=== PATIENT | male | born 1985 | race Caucasian/White ===

== ENCOUNTER 2018-01-31 10:31 | Emergency (ER) | payer MEDICAID ==
[2018-01-31] MEDS ORDERED: NS 1,000 ML IV ONE ×2 (11:00→11:44)
[2018-01-31 11:05] LABS: PLATELET COUNT 289 10^3/uL (150-400)
--- NOTE | 2018-01-31 11:26 | EDPHY ---
H & P Stated Complaint: hyperglycemia Time Seen by Provider: 01/31/18 11:25 HPI/ROS: CHIEF COMPLAINT: Sent to ED for medical clearance HISTORY OF PRESENT ILLNESS: The patient is sent to the emergency department for medical clearance for long-term. The patient has a history of diabetes which she manages with Humalog and Lantus. He reports he has had fairly reasonably controlled blood sugars. He also has a history of narcotic dependence and last used narcotics last night. The patient does have a history of a seizure disorder and is currently using CBD oil. He is under the care of a neurologist in [place]. The patient denies any history of a recent fall or head injury. He did have a CT scan 4 weeks ago. The patient is on a number of other medications including Xanax, Prozac, Adderall and Abilify. The patient does complain of some mild nausea but denies fever, vomiting, cough or congestion. The patient denies any additional acute complaints. REVIEW OF SYSTEMS: A comprehensive 10 point review of systems is otherwise negative aside from elements mentioned in the history of present illness. Source: Patient Exam Limitations: No limitations - Personal History Current Tetanus/Diphtheria Vaccine: Unsure Current Tetanus Diphtheria and Acellular Pertussis (TDAP): Unsure - Medical/Surgical History Hx Asthma: Yes Hx Chronic Respiratory Disease: No Hx Diabetes: Yes Hx Cardiac Disease: No Hx Renal Disease: No Hx Cirrhosis: No Hx Alcoholism: Yes Hx HIV/AIDS: No Hx Splenectomy or Spleen Trauma: No Other PMH: diabetes, TBI, anxiety, drug abuse and seizures ( takes CBD oil for same) - Social History Smoking Status: Current every day smoker - Physical Exam Exam: General Appearance: Alert, no distress Head: Normocephalic atraumatic Eyes: Pupils equal and round no pallor or injection ENT, Mouth: Mucous membranes moist Respiratory: There are no retractions, lungs are clear to auscultation Cardiovascular: Regular rate and rhythm Gastrointestinal: Abdomen is soft and nontender, no masses, bowel sounds normal Neurological: A&O, normal motor function, normal sensory exam, normal cranial nerves Skin: Warm and dry, no rashes Musculoskeletal: Neck is supple nontender Extremities: symmetrical, full range of motion Constitutional: Initial Vital Signs Heart Rate 94 01/31/18 10:35 Respiratory Rate 16 01/31/18 10:35 Blood Pressure 112/85 H 01/31/18 10:35 O2 Sat (%) 93 01/31/18 10:35 O2 Delivery Mode Room Air Allergies/Adverse Reactions: naproxen Allergy (Verified 01/31/18 10:41) Home Medications: Medication Instructions Recorded Insulin Lispro [Humalog] 01/31/18 Lantus 01/31/18 Medical Decision Making ED Course/Re-evaluation: The patient presents the ED for medical clearance. The patient reports that he is in narcotic withdrawal however is having no tachycardia, tremor or vomiting. His vital signs are stable. His neurologic examination is normal. The patient does have a history of diabetes and was noted to have hyperglycemia upon arrival. He has no evidence of diabetic ketoacidosis. He received subcutaneous insulin 8 units and 2 L of normal saline. Patient's blood sugar is now 213 in his venous pH is 7.32. The patient has been medically cleared for long-term. He should continue his regular psychiatric medications and insulin therapy while in long-term. The patient should be monitored for signs of severe withdrawal and return to the ED for any vital sign abnormalities, intractable vomiting, abnormal mentation or other concerns. - Data Points Laboratory Results: Laboratory Results 01/31/18 10:25 01/31/18 10:25 01/31/18 01/31/18 01/31/18 11:08 10:40 10:25 WBC RBC Hgb POC Hgb 16.0 gm/dL gm/dL (13.7-17.5) Hct POC Hct 47 % % (40-51) MCV MCH MCHC RDW Plt Count MPV Neut % (Auto) Lymph % (Auto) [place] % (Auto) Eos % (Auto) Baso % (Auto) Nucleat RBC Rel Count Absolute Neuts (auto) Absolute Lymphs (auto) Absolute Monos (auto) Absolute Eos (auto) Absolute Basos (auto) Absolute Nucleated RBC Immature Gran % Immature Gran # VBG pH 7.28 L (7.31-7.42) POC Sodium 136 mEq/L mEq/L (135-145) Sodium 134 mEq/L L mEq/L (135-145) POC Potassium 4.4 mEq/L mEq/L (3.3-5.0) Potassium 4.9 mEq/L mEq/L (3.3-5.0) POC Chloride 98 mEq/L mEq/L (97-110) Chloride 99 mEq/L mEq/L (97-110) Carbon Dioxide 26 mEq/l mEq/l (22-31) Anion Gap 9 mEq/L mEq/L (8-16) POC BUN 13 mg/dL mg/dL (7-23) BUN 14 mg/dL mg/dL (7-23) Creatinine 0.6 mg/dL L mg/dL (0.7-1.3) POC Creatinine 0.5 mg/dL L mg/dL (0.7-1.3) Estimated GFR > 60 Glucose 397 mg/dL H mg/dL (70-100) POC Glucose 412 mg/dL H mg/dL (70-100) Calcium 10.2 mg/dL mg/dL (8.5-10.4) 01/31/18 10:25 WBC 6.16 10^3/uL 10^3/uL (3.80-9.50) RBC 5.05 10^6/uL 10^6/uL (4.40-6.38) Hgb 15.6 g/dL g/dL (13.7-17.5) POC Hgb Hct 43.8 % % (40.0-51.0) POC Hct MCV 86.7 fL fL (81.5-99.8) MCH 30.9 pg pg (27.9-34.1) MCHC 35.6 g/dL g/dL (32.4-36.7) RDW 12.3 % % (11.5-15.2) Plt Count 289 10^3/uL 10^3/uL (150-400) MPV 9.6 fL fL (8.7-11.7) Neut % (Auto) 58.4 % % (39.3-74.2) Lymph % (Auto) 29.5 % % (15.0-45.0) [place] % (Auto) 9.7 % % (4.5-13.0) Eos % (Auto) 1.0 % % (0.6-7.6) Baso % (Auto) 1.1 % % (0.3-1.7) Nucleat RBC Rel Count 0.0 % % (0.0-0.2) Absolute Neuts (auto) 3.59 10^3/uL 10^3/uL (1.70-6.50) Absolute Lymphs (auto) 1.82 10^3/uL 10^3/uL (1.00-3.00) Absolute Monos (auto) 0.60 10^3/uL 10^3/uL (0.30-0.80) Absolute Eos (auto) 0.06 10^3/uL 10^3/uL (0.03-0.40) Absolute Basos (auto) 0.07 10^3/uL 10^3/uL (0.02-0.10) Absolute Nucleated RBC 0.00 10^3/uL 10^3/uL (0-0.01) Immature Gran % 0.3 % % (0.0-1.1) Immature Gran # 0.02 10^3/uL 10^3/uL (0.00-0.10) VBG pH POC Sodium Sodium POC Potassium Potassium POC Chloride Chloride Carbon Dioxide Anion Gap POC BUN BUN Creatinine POC Creatinine Estimated GFR Glucose POC Glucose Calcium Medications Given: Discontinued Medications Sodium Chloride (Ns) 1,000 mls @ 0 mls/hr IV EDNOW ONE; Wide Open PRN Reason: Protocol Stop: 01/31/18 11:01 Last Admin: 01/31/18 11:07 Dose: 1,000 mls Sodium Chloride (Ns) 1,000 mls @ 0 mls/hr IV EDNOW ONE; Wide Open PRN Reason: Protocol Stop: 01/31/18 11:45 Last Admin: 01/31/18 11:53 Dose: 1,000 mls Insulin Human Regular (Humulin R) 8 unit SC EDNOW ONE Stop: 01/31/18 11:56 Last Admin: 01/31/18 12:03 Dose: 8 units Point of Care Test Results: Chemistry 01/31/18 10:40 POC Sodium 136 mEq/L mEq/L (135-145) POC Potassium 4.4 mEq/L mEq/L (3.3-5.0) POC Chloride 98 mEq/L mEq/L (97-110) POC BUN 13 mg/dL mg/dL (7-23) POC Creatinine 0.5 mg/dL L mg/dL (0.7-1.3) POC Glucose 412 mg/dL H mg/dL (70-100) ISTAT H&H 01/31/18 10:40 POC Hgb 16.0 gm/dL gm/dL (13.7-17.5) POC Hct 47 % % (40-51) Departure - Departure Disposition: Home, Routine, Self-Care Clinical Impression: Diabetes, Seizure disorder Condition: Good Instructions: Diabetes and Nutrition (ED) Additional Instructions: 1. Continue your regular insulin therapy. 2. I do recommend continuing to work with your neurologist regarding your chronic seizure disorder. 3. Return to the ED for any markedly worsening symptoms or other concerns. 4. You have been given contact information for [facility] if you desire assistance with narcotic dependence Referrals: [facility] [Outside] - As per Instructions
[2018-01-31] MEDS ORDERED: INSULIN REGULAR HUMAN 100 UNIT/ML UNIT SC ONE (11:55)
[2018-01-31 13:01] VITALS: BP 132/85
== END 2018-01-31 12:59 | disposition home or self-care (01) ==
LOC: EDUNIT#
DX: G40.909 Epilepsy, unspecified, not intractable, without status epilepticus (principal); E11.9 Type 2 diabetes mellitus without complications; E86.9 Volume depletion, unspecified; J45.909 Unspecified asthma, uncomplicated; F17.200 Nicotine dependence, unspecified, uncomplicated; Z79.4 Long term (current) use of insulin
CPT/HCPCS: 82435-PO; 82565-PO; 82947-PO; 84132-PO; 84295-PO; 84520-PO; 85014-PO; J1815

== ENCOUNTER 2018-02-05 14:40 | Emergency (ER) | payer MEDICAID, OTHER ==
--- NOTE | 2018-02-05 15:17 | EDPHY ---
H & P Time Seen by Provider: 02/05/18 14:57 HPI/ROS: CHIEF COMPLAINT: Head injury HISTORY OF PRESENT ILLNESS: Patient is a 32-year-old male, incarcerated, with a history of insulin-dependent diabetes who presents emergency department after striking his head. Per officer report, the patient is on suicide watch. He is checked every 15 min. Patient states that he fell down and struck his head on the counter. The initial report was that he hit his head on the bunk bed. The patient denies losing consciousness. Per the officer, he seems more somnolent than normal. The officer reports that his glucose was in the 300s. Patient denies any headache or neck pain. He has no chest pain or shortness of breath. REVIEW OF SYSTEMS: My complete review of systems is negative except as mentioned in the HPI. Past Medical/Surgical History: Includes insulin-dependent diabetes, traumatic brain injury, anxiety, drug abuse , seizure Social history: The patient is incarcerated Smoking Status: Current every day smoker Physical Exam: Vitals noted. GENERAL: No acute distress, alert. HEAD: Patient has a 1 cm laceration on the top of his head. There is no crepitus or step-off.. EYES: PERRLA, EOMI, normal to inspection. ENT: Airway intact, no dental or oral injury, no malocclusion, no hemotympanum , normal external examination. NECK: The trachea is midline. There is no crepitus. The C-spine is nontender. NEXUS criteria is negative (no midline tenderness, no distracting injury, no altered mental status, no recent alcohol use, no focal neurologic deficit). RESPIRATORY: Clear to auscultation bilaterally, no rales, rhonchi or wheezing. There is no crepitus or palpable rib fractures. CVS: Regular rate and rhythm, no rubs, murmurs, or gallops. ABDOMEN: Soft, nontender, nondistended, normal bowel sounds, no bruising or abrasions. Pelvis: Stable. No tenderness palpation. Hips full range of motion. BACK: Normal to inspection, no spinal tenderness, no spinal step off, no notable bruising or abrasions. SKIN: Normal color, warm, dry. No pallor or diaphoresis. EXTREMITIES: Atraumatic, neurovascularly intact distally in all extremities, pelvis is stable , hips with full range of motion, moves all extremities freely. NEURO/PSYCH: Alert and oriented x 3, GCS 15, patient asks some strange questions but otherwise answers my questions appropriately. Normal motor sensory exam. Constitutional: Initial Vital Signs Temperature (C) 36.4 C 02/05/18 14:45 Heart Rate 68 02/05/18 14:45 Respiratory Rate 14 02/05/18 14:45 Blood Pressure 133/90 H 02/05/18 14:45 O2 Sat (%) 98 02/05/18 14:45 O2 Delivery Mode Room Air Allergies/Adverse Reactions: naproxen Allergy (Verified 01/31/18 10:41) Home Medications: Medication Instructions Recorded Insulin Lispro [Humalog] 01/31/18 Lantus 01/31/18 Medical Decision Making - Diagnostics Imaging Results: Imaging Impressions Cervical Spine CT 02/05/18 15:13 Impression: 1. No acute fracture or soft tissue swelling. 2. If the patient has persistent pain or neurologic deficits, consider cervical spine MRI. Findings discussed with Emergency Department physician, Angelica Upton M.D. , on February 05, 2018 at 15:53. Head CT 02/05/18 15:13 Impression: 1. No acute fracture or evidence of acute intracranial injury. 2. Minimal scalp deformity at the vertex. Findings discussed with Emergency Department physician, Angelica Upton M.D. , on February 05, 2018 at 1553. Procedures: Procedure: Laceration repair. Verbal consent was obtained from the patient. The 0.5 cm laceration on the scalp was anesthetized in the usual fashion. The wound was irrigated, draped and explored to its base with a gloved finger. There were no deep structures involved. The wound was repaired with . The wound repair was a single staple. The procedure was performed by myself. ED Course/Re-evaluation: In the emergency department I discussed possible etiologies with the patient and officer. I answered all his questions. An IV was placed. Finger stick blood glucose was ordered. Head CT and C-spine CT were ordered. Glucose was [address], C-spine CT: Please refer the dictated report. There is a soft tissue injury on the had otherwise no abnormality noted. Patient's CBC was notable for slightly low hematocrit.. His chemistry panel is notable for an anion gap of 5. Mildly elevated glucose. CO2 was normal. I rechecked the patient. His C-collar was removed. On recheck he had no focal deficits. He has answer my questions appropriately. His GCS was 15. He was acting normally. Patient was given warnings prior to leaving. Differential Diagnosis: My differential includes but is not limited to traumatic brain injury, subarachnoid hemorrhage, subdural hematoma, epidural hematoma, skull fracture, laceration, contusion, C-spine injury, electrolyte abnormality, sugar abnormality, acidosis - Data Points Laboratory Results: Laboratory Results 02/05/18 15:33 02/05/18 15:33 02/05/18 02/05/18 02/05/18 15:33 15:33 15:12 WBC 7.41 10^3/uL 10^3/uL (3.80-9.50) RBC 4.51 10^6/uL 10^6/uL (4.40-6.38) Hgb 13.7 g/dL g/dL (13.7-17.5) Hct 38.5 % L % (40.0-51.0) MCV 85.4 fL fL (81.5-99.8) MCH 30.4 pg pg (27.9-34.1) MCHC 35.6 g/dL g/dL (32.4-36.7) RDW 12.2 % % (11.5-15.2) Plt Count 277 10^3/uL 10^3/uL (150-400) MPV 9.4 fL fL (8.7-11.7) Neut % (Auto) 70.5 % % (39.3-74.2) Lymph % (Auto) 21.9 % % (15.0-45.0) [place] % (Auto) 6.9 % % (4.5-13.0) Eos % (Auto) 0.3 % L % (0.6-7.6) Baso % (Auto) 0.3 % % (0.3-1.7) Nucleat RBC Rel Count 0.0 % % (0.0-0.2) Absolute Neuts (auto) 5.23 10^3/uL 10^3/uL (1.70-6.50) Absolute Lymphs (auto) 1.62 10^3/uL 10^3/uL (1.00-3.00) Absolute Monos (auto) 0.51 10^3/uL 10^3/uL (0.30-0.80) Absolute Eos (auto) 0.02 10^3/uL L 10^3/uL (0.03-0.40) Absolute Basos (auto) 0.02 10^3/uL 10^3/uL (0.02-0.10) Absolute Nucleated RBC 0.00 10^3/uL 10^3/uL (0-0.01) Immature Gran % 0.1 % % (0.0-1.1) Immature Gran # 0.01 10^3/uL 10^3/uL (0.00-0.10) Sodium 134 mEq/L L mEq/L (135-145) Potassium 4.1 mEq/L mEq/L (3.3-5.0) Chloride 102 mEq/L mEq/L (97-110) Carbon Dioxide 27 mEq/l mEq/l (22-31) Anion Gap 5 mEq/L L mEq/L (8-16) BUN 12 mg/dL mg/dL (7-23) Creatinine 0.6 mg/dL L mg/dL (0.7-1.3) Estimated GFR > 60 Glucose 321 mg/dL H mg/dL (70-100) POC Glucose 349 mg/dL H mg/dL (70-100) Calcium 9.0 mg/dL mg/dL (8.5-10.4) Ethyl Alcohol < 10 mg/dL mg/dL (0-10) Point of Care Test Results: Chemistry 02/05/18 15:12 POC Glucose 349 mg/dL H mg/dL (70-100) Departure - Departure Disposition: Home, Routine, Self-Care Clinical Impression: Head injury Qualifiers: Encounter type: initial encounter Qualified Code(s): S09.90XA - Unspecified injury of head, initial encounter Laceration of scalp Qualifiers: Encounter type: initial encounter Qualified Code(s): S01.01XA - Laceration without foreign body of scalp, initial encounter Condition: Good Instructions: Head Injury (ED), Laceration (ED) Additional Instructions: Return with increasing headache, weakness, numbness or any other concerns. You should IV staple out in 6-7 days.
[2018-02-05 15:43] LABS: PLATELET COUNT 277 10^3/uL (150-400)
[2018-02-05 16:41] VITALS: BP 115/74
== END 2018-02-05 16:47 | disposition home or self-care (01) ==
LOC: EDUNIT# → EEVIPCON 14:40
PROC: 0HQ0XZZ Repair Scalp Skin, External Approach (ICD-10-PCS; principal; 2018-02-05)
DX: S01.01XA Laceration without foreign body of scalp, initial encounter (principal); E10.9 Type 1 diabetes mellitus without complications; F17.200 Nicotine dependence, unspecified, uncomplicated; W22.8XXA Striking against or struck by other objects, initial encounter; Y92.9 Unspecified place or not applicable; Y93.9 Activity, unspecified; Y99.9 Unspecified external cause status
CPT/HCPCS: G0480

== ENCOUNTER 2018-03-24 11:16 | Inpatient (IN) | payer MEDICAID, OTHER ==
--- NOTE | 2018-03-24 11:23 | EDPHY ---
H & P Time Seen by Provider: 03/24/18 11:19 - Medical/Surgical History Hx Asthma: Yes Hx Chronic Respiratory Disease: No Hx Diabetes: Yes Hx Cardiac Disease: No Hx Renal Disease: No Hx Cirrhosis: No Hx Alcoholism: Yes Hx HIV/AIDS: No Hx Splenectomy or Spleen Trauma: No Other PMH: diabetes, TBI, anxiety, drug abuse and seizures ( takes CBD oil for same) - Social History Smoking Status: Current every day smoker Constitutional: Initial Vital Signs Temperature (C) 36.9 C 03/24/18 11:16 Heart Rate 118 H 03/24/18 11:16 Respiratory Rate 19 03/24/18 11:16 Blood Pressure 157/108 H 03/24/18 11:16 O2 Sat (%) 96 03/24/18 11:16 O2 Delivery Mode Room Air O2 (L/minute) 2 Allergies/Adverse Reactions: naproxen Allergy (Unknown, Verified 03/24/18 14:17) Hives Home Medications: Medication Instructions Recorded Insulin Glargine [Lantus 100 28 units SC HS 01/31/18 UNITS/ML (*)] Insulin Lispro [Humalog] 5 - 17 units SQ QIDMEAL 01/31/18 Escitalopram Oxalate [Lexapro] 10 mg PO DAILY 03/24/18 Insulin Glargine [Lantus 100 25 units SC DAILY 03/24/18 UNITS/ML (*)] traZODone [traZODONE 100MG (*)] 200 mg PO HS 03/24/18 Medical Decision Making - Diagnostics Imaging Results: Imaging Impressions Abdomen CT 03/24/18 11:31 Impression: 1. Tiny gallstones within otherwise normal contracted gallbladder. 2. Moderate constipation. 3. Mild haziness around the pancreatic head. Consider mild pancreatitis. 4. Mild thickening of proximal small bowel loops. Consider mild enteritis or inflammatory process. 5. No CT evidence of appendicitis, abscess or bowel obstruction. Findings discussed with Martínez Cabral MD at 13:32 hour, 03/24/2018. Imaging: Discussed imaging studies w/ air crew member Radiologist, I viewed and interpreted images myself ED Course/Re-evaluation: CHIEF COMPLAINT: Abdominal pain HISTORY OF PRESENT ILLNESS: The patient is a 32 y/o male with a history of gastroparesis, diabetes, a TBI, and anxiety arriving in [facility] complaining of abdominal pain and distension. The patient has had gastroparesis twice, with his most recent episode 2-3 months ago. With his most recent gastroparesis, he was admitted to the hospital for 4 days. Around 4-5 days ago, the patient developed abdominal pain and distension; he denies vomiting. He has been able to drink water but has had a decreased appetite. He has also had normal bowel movement and is able to pass gas. When he went to the alf nurse this morning his BGL was over 600, so he was given 12 units of Humalog. He was also given Tylenol for his abdominal pain this morning. Currently he "feels like his abdomen is ripping on the inside". No headache, chest pain, shortness of breath, urinary or bowel complaints, numbness, paresthesias, fever. REVIEW OF SYSTEMS: A comprehensive 10 system review of systems is otherwise negative aside from elements mentioned in the history of present illness and medical decision making. PHYSICAL EXAM: HR, BP, O2 Sat, RR. Temp noted General Appearance: Alert, well hydrated, appropriate, and non-toxic appearing. Head: Atraumatic without scalp tenderness or obvious injury Eyes: Pupils equal, round, reactive to light and accommodation, EOMI, no trauma , no injection. Ears: Clear bilaterally, no perforation, normal landmarks Nose: Atraumatic, no rhinorrhea, clear. Throat: There is no erythema or exudates, no lesions, normal tonsils, mucus membranes moist. Neck: Supple, nontender, no lymphadenopathy. Respiratory: No retractions, no distress, no wheezes, and no accessory muscle use. Lungs are clear to auscultation bilaterally. Cardiovascular: Regular rate and rhythm, no murmurs, rubs, or gallops. Bilateral carotid, radial, dorsalis pedis, and posterior tibial pulses intact. Good capillary refill all extremities. Gastrointestinal: Distended abdomen with tympanum and diffuse tenderness. Abdomen has no masses, no rebound, no guarding, no peritoneal signs. Musculoskeletal: Normal active ROM of all extremities, atraumatic. Neurological: Alert, appropriate, and interactive. The patient has normal DTRs and non-focal cranial nerves, motor, sensory, and cerebellar exam. Skin: No rashes, good turgor, no nodules on palpation. Past medical history: Gastroparesis, diabetes, TBI, anxiety, drug abuse and seizures ( takes CBD oil for same) Past surgical history: Denies Family history: Denies Social history: Inmate, lives in [place], single DIAGNOSTICS/PROCEDURES/CRITICAL CARE TIME: Abdominopelvic CT: Moderate constipation with mild enteritis DIFFERENTIAL DIAGNOSIS: The differential diagnosis for the patient's abdominal pain included but was not limited to constipation, enteritis, appendicitis, cholecystitis, hernias, testicular torsion, gastritis, and urinary tract infection. MEDICAL DECISION MAKING: The patient is a 32 y/o male with a history of gastroparesis, diabetes, a TBI, and anxiety arriving in [facility] presenting with abdominal pain and distension. On exam he has a significantly distended abdomen with tympanum and diffuse tenderness. Labs and abdominopelvic CT ordered; 1L IV NS, 1mg IV Dilaudid, and 4mg IV Zofran administered. 1215: Patient's BGL continues to be 580; repeat BGL ordered as he was given 12 units of Humalog at the alf, prior to arrival. 1228: Patient's repeat BGL is 378; abdominopelvic CT still pending. 1308: Patient is requesting more pain medications; additional 1mg IV Dilaudid and 10mg IV Reglan administered. 1334: Spoke with Dr. Cummings, radiologist, regarding patient's abdominopelvic CT. There is moderate constipation with mild enteritis. This patient will need to be admitted as he will most likely be sent back to the hospital if I discharge him back to alf. 1346: I consulted with hospitalist service, Dr. Urbano accepts admission of this patient. 1352: Reassessed patient and discussed laboratory and imaging findings. I have also discussed plan for admission; patient is comfortable with this plan. 500mg PO Erythromycin administered prior to transfer to the floor. - Data Points Laboratory Results: Laboratory Results 03/24/18 11:30 03/24/18 11:30 03/24/18 03/24/18 03/24/18 12:23 11:31 11:30 WBC RBC Hgb POC Hgb 14.6 gm/dL gm/dL 15.6 gm/dL gm/dL (13.7-17.5) (13.7-17.5) Hct POC Hct 43 % % 46 % % (40-51) (40-51) MCV MCH MCHC RDW Plt Count MPV Neut % (Auto) Lymph % (Auto) [place] % (Auto) Eos % (Auto) Baso % (Auto) Nucleat RBC Rel Count Absolute Neuts (auto) Absolute Lymphs (auto) Absolute Monos (auto) Absolute Eos (auto) Absolute Basos (auto) Absolute Nucleated RBC Immature Gran % Immature Gran # POC Sodium 136 mEq/L mEq/L 133 mEq/L L mEq/L (135-145) (135-145) Sodium 132 mEq/L L mEq/L (135-145) POC Potassium 4.7 mEq/L mEq/L 4.5 mEq/L mEq/L (3.3-5.0) (3.3-5.0) Potassium 4.9 mEq/L mEq/L (3.3-5.0) POC Chloride 99 mEq/L mEq/L 98 mEq/L mEq/L (97-110) (97-110) Chloride 97 mEq/L mEq/L (97-110) Carbon Dioxide 23 mEq/l mEq/l (22-31) Anion Gap 12 mEq/L mEq/L (8-16) POC BUN 14 mg/dL mg/dL 13 mg/dL mg/dL (7-23) (7-23) BUN 13 mg/dL mg/dL (7-23) Creatinine 0.6 mg/dL L mg/dL (0.7-1.3) POC Creatinine 0.6 mg/dL L mg/dL 0.6 mg/dL L mg/dL (0.7-1.3) (0.7-1.3) Estimated GFR > 60 Glucose 565 mg/dL H* mg/dL (70-100) POC Glucose 378 mg/dL H mg/dL 584 mg/dL H* mg/dL (70-100) (70-100) Calcium 9.7 mg/dL mg/dL (8.5-10.4) Total Bilirubin 0.3 mg/dL mg/dL (0.1-1.4) Conjugated Bilirubin 0.1 mg/dL mg/dL (0.0-0.5) Unconjugated Bilirubin 0.2 mg/dL mg/dL (0.0-1.1) AST 20 IU/L IU/L (17-59) ALT 34 IU/L IU/L (21-72) Alkaline Phosphatase 82 IU/L IU/L (38-126) Total Protein 6.3 g/dL g/dL (6.3-8.2) Albumin 3.8 g/dL g/dL (3.5-5.0) Lipase 308 IU/L H IU/L (23-300) 03/24/18 11:30 WBC 8.82 10^3/uL 10^3/uL (3.80-9.50) RBC 4.66 10^6/uL 10^6/uL (4.40-6.38) Hgb 14.3 g/dL g/dL (13.7-17.5) POC Hgb Hct 41.7 % % (40.0-51.0) POC Hct MCV 89.5 fL fL (81.5-99.8) MCH 30.7 pg pg (27.9-34.1) MCHC 34.3 g/dL g/dL (32.4-36.7) RDW 12.7 % % (11.5-15.2) Plt Count 322 10^3/uL 10^3/uL (150-400) MPV 9.1 fL fL (8.7-11.7) Neut % (Auto) 75.8 % H % (39.3-74.2) Lymph % (Auto) 12.9 % L % (15.0-45.0) [place] % (Auto) 10.3 % % (4.5-13.0) Eos % (Auto) 0.2 % L % (0.6-7.6) Baso % (Auto) 0.6 % % (0.3-1.7) Nucleat RBC Rel Count 0.0 % % (0.0-0.2) Absolute Neuts (auto) 6.68 10^3/uL H 10^3/uL (1.70-6.50) Absolute Lymphs (auto) 1.14 10^3/uL 10^3/uL (1.00-3.00) Absolute Monos (auto) 0.91 10^3/uL H 10^3/uL (0.30-0.80) Absolute Eos (auto) 0.02 10^3/uL L 10^3/uL (0.03-0.40) Absolute Basos (auto) 0.05 10^3/uL 10^3/uL (0.02-0.10) Absolute Nucleated RBC 0.00 10^3/uL 10^3/uL (0-0.01) Immature Gran % 0.2 % % (0.0-1.1) Immature Gran # 0.02 10^3/uL 10^3/uL (0.00-0.10) POC Sodium Sodium POC Potassium Potassium POC Chloride Chloride Carbon Dioxide Anion Gap POC BUN BUN Creatinine POC Creatinine Estimated GFR Glucose POC Glucose Calcium Total Bilirubin Conjugated Bilirubin Unconjugated Bilirubin AST ALT Alkaline Phosphatase Total Protein Albumin Lipase Medications Given: Discontinued Medications Erythromycin (Parth-Tab) 500 mg PO EDNOW ONE PRN Reason: Protocol Stop: 03/24/18 13:08 Last Admin: 03/24/18 13:59 Dose: 500 mg Hydromorphone HCl (Dilaudid) 1 mg IVP EDNOW ONE Stop: 03/24/18 11:30 Last Admin: 03/24/18 11:41 Dose: 1 mg Hydromorphone HCl (Dilaudid) 1 mg IVP EDNOW ONE Stop: 03/24/18 13:08 Last Admin: 03/24/18 13:12 Dose: 1 mg Sodium Chloride (Ns) 1,000 mls @ 0 mls/hr IV EDNOW ONE; Wide Open PRN Reason: Protocol Stop: 03/24/18 11:30 Last Admin: 03/24/18 11:40 Dose: 1,000 mls Metoclopramide HCl (Reglan Injection) 10 mg IVP EDNOW ONE Stop: 03/24/18 13:08 Last Admin: 03/24/18 13:12 Dose: 10 mg Ondansetron HCl (Zofran) 4 mg IVP EDNOW ONE Stop: 03/24/18 11:30 Last Admin: 03/24/18 11:41 Dose: 4 mg Point of Care Test Results: Chemistry 03/24/18 03/24/18 12:23 11:31 POC Sodium 136 mEq/L mEq/L 133 mEq/L L mEq/L (135-145) (135-145) POC Potassium 4.7 mEq/L mEq/L 4.5 mEq/L mEq/L (3.3-5.0) (3.3-5.0) POC Chloride 99 mEq/L mEq/L 98 mEq/L mEq/L (97-110) (97-110) POC BUN 14 mg/dL mg/dL 13 mg/dL mg/dL (7-23) (7-23) POC Creatinine 0.6 mg/dL L mg/dL 0.6 mg/dL L mg/dL (0.7-1.3) (0.7-1.3) POC Glucose 378 mg/dL H mg/dL 584 mg/dL H* mg/dL (70-100) (70-100) ISTAT H&H 03/24/18 03/24/18 12:23 11:31 POC Hgb 14.6 gm/dL gm/dL 15.6 gm/dL gm/dL (13.7-17.5) (13.7-17.5) POC Hct 43 % % 46 % % (40-51) (40-51) Departure - Departure Disposition: [facility] Inpatient Acute Clinical Impression: Enteritis, Distended abdomen, Gastroparesis Constipation Qualifiers: Constipation type: unspecified constipation type Qualified Code(s): K59.00 - Constipation, unspecified Condition: Fair Report Scribed for: Martínez Cabral Report Scribed by: Sarah Nolan Date of Report: 03/24/18 Time of Report: 11:24
[2018-03-24] MEDS ORDERED: HYDROmorphONE/DILAUDID 2 MG/ML INJ IVP ONE ×2 (11:29→13:07)
[2018-03-24] MEDS ORDERED: NS 1,000 ML IV ONE ×2 (11:29→15:16)
[2018-03-24] MEDS ORDERED: ONDANSETRON 4 MG/2 ML VIAL IVP ONE (11:29)
[2018-03-24 11:46] LABS: PLATELET COUNT 322 10^3/uL (150-400)
[2018-03-24] MEDS ORDERED: IOPAMIDOL (ISOVUE-300) 100 ML BTL ONE (12:21)
[2018-03-24] MEDS ORDERED: METOCLOPRAMIDE 10 MG/2 ML VIAL IVP ONE (13:07)
[2018-03-24] MEDS ORDERED: ERYTHROMYCIN BASE 250 MG TAB PO ONE (13:07)
[2018-03-24] MEDS ORDERED: ONDANSETRON DISINTEGRATING 4 MG TAB PO PRN (15:16)
[2018-03-24] MEDS ORDERED: ONDANSETRON 4 MG/2 ML VIAL IVP PRN (15:16)
[2018-03-24] MEDS ORDERED: PROTOCOL POTASSIUM 1 DOSE MISC PRN (15:19)
[2018-03-24] MEDS ORDERED: PROTOCOL MAGNESIUM 1 DOSE IV PRN (15:19)
[2018-03-24] MEDS ORDERED: D50W 25 GM/50 ML SYR IVP PRN (15:20)
[2018-03-24] MEDS ORDERED: INSULIN LISPRO 100 UNIT/ML SC ONE (15:23)
--- NOTE | 2018-03-24 15:26 | PDGENHP ---
History and Physical - Chief Complaint nausea - History of Present Illness HISTORY OF PRESENT ILLNESS: The patient is a 32 y/o male with a history of gastroparesis, diabetes, a TBI, and anxiety arriving in [facility] complaining of abdominal pain and distension. The patient has had gastroparesis twice, with his most recent episode 2-3 months ago. With his most recent gastroparesis, he was admitted to the hospital for 4 days. Around 4-5 days ago, the patient developed abdominal pain and distension; he denies vomiting. He has been able to drink water but has had a decreased appetite. He has also had normal bowel movement and is able to pass gas. When he went to the [facility] nurse this morning his BGL was over 600, so he was given 12 units of Humalog. He was also given Tylenol for his abdominal pain this morning. Currently he "feels like his abdomen is ripping on the inside". No headache, chest pain, shortness of breath, urinary or bowel complaints, numbness, paresthesias, fever. In the ER he is found to have hyperglycemia. IVF provided. no e/o DKA Past medical history: Gastroparesis, diabetes, TBI, anxiety, drug abuse and seizures ( takes CBD oil for same) Past surgical history: Denies Family history: Denies Social history: Inmate, lives in [place], [facility] Abdominopelvic CT: Moderate constipation with mild enteritis History Information - Allergies/Home Medication List Allergies/Adverse Reactions: naproxen Allergy (Unknown, Verified 03/24/18 14:17) Hives Home Medications: Insulin Glargine [Lantus 100 UNITS/ML (*)] 28 units SC HS 01/31/18 [Last Taken Unknown] Insulin Lispro [Humalog] 5 - 17 units SQ QIDMEAL 01/31/18 [Last Taken Unknown] Escitalopram Oxalate [Lexapro] 10 mg PO DAILY 03/24/18 [Last Taken Unknown] Insulin Glargine [Lantus 100 UNITS/ML (*)] 25 units SC DAILY 03/24/18 [Last Taken Unknown] traZODone [traZODONE 100MG (*)] 200 mg PO HS 03/24/18 [Last Taken Unknown] I have personally reviewed and updated: medical history, social history - Social History Smoking Status: Current every day smoker Review of Systems Review of Systems: ROS: 10pt was reviewed & negative except for what was stated in HPI & below Physical Exam Physical Exam: Temp Pulse Resp BP Pulse Ox 36.9 C 95 16 135/93 H 98 03/24/18 11:16 03/24/18 15:00 03/24/18 15:00 03/24/18 15:00 03/24/18 15:00 O2 (L/minute) 2 Constitutional: no apparent distress Eyes: PERRL Ears, Nose, Mouth, Throat: dry mucous membranes Cardiovascular: regular rate and rhythym, No edema Respiratory: no respiratory distress, no rales or rhonchi Gastrointestinal: normoactive bowel sounds, soft, non-tender abdomen Skin: warm Musculoskeletal: full muscle strength Neurologic: AAOx3 Psychiatric: interacting appropriately, not anxious, not encephalopathic Lymph, Heme, Immunologic: No petechiae Lab Data & Imaging Review 03/24/18 11:30 03/24/18 11:30 WBC 8.82 10^3/uL (3.80-9.50) 03/24/18 11:30 RBC 4.66 10^6/uL (4.40-6.38) 03/24/18 11:30 Hgb 14.3 g/dL (13.7-17.5) 03/24/18 11:30 POC Hgb 14.6 gm/dL (13.7-17.5) 03/24/18 12:23 Hct 41.7 % (40.0-51.0) 03/24/18 11:30 POC Hct 43 % (40-51) 03/24/18 12:23 MCV 89.5 fL (81.5-99.8) 03/24/18 11:30 MCH 30.7 pg (27.9-34.1) 03/24/18 11:30 MCHC 34.3 g/dL (32.4-36.7) 03/24/18 11:30 RDW 12.7 % (11.5-15.2) 03/24/18 11:30 Plt Count 322 10^3/uL (150-400) 03/24/18 11:30 MPV 9.1 fL (8.7-11.7) 03/24/18 11:30 Neut % (Auto) 75.8 % (39.3-74.2) H 03/24/18 11:30 Lymph % (Auto) 12.9 % (15.0-45.0) L 03/24/18 11:30 [place] % (Auto) 10.3 % (4.5-13.0) 03/24/18 11:30 Eos % (Auto) 0.2 % (0.6-7.6) L 03/24/18 11:30 Baso % (Auto) 0.6 % (0.3-1.7) 03/24/18 11:30 Nucleat RBC Rel Count 0.0 % (0.0-0.2) 03/24/18 11:30 Absolute Neuts (auto) 6.68 10^3/uL (1.70-6.50) H 03/24/18 11:30 Absolute Lymphs (auto) 1.14 10^3/uL (1.00-3.00) 03/24/18 11:30 Absolute Monos (auto) 0.91 10^3/uL (0.30-0.80) H 03/24/18 11:30 Absolute Eos (auto) 0.02 10^3/uL (0.03-0.40) L 03/24/18 11:30 Absolute Basos (auto) 0.05 10^3/uL (0.02-0.10) 03/24/18 11:30 Absolute Nucleated RBC 0.00 10^3/uL (0-0.01) 03/24/18 11:30 Immature Gran % 0.2 % (0.0-1.1) 03/24/18 11:30 Immature Gran # 0.02 10^3/uL (0.00-0.10) 03/24/18 11:30 POC Sodium 136 mEq/L (135-145) 03/24/18 12:23 Sodium 132 mEq/L (135-145) L 03/24/18 11:30 POC Potassium 4.7 mEq/L (3.3-5.0) 03/24/18 12:23 Potassium 4.9 mEq/L (3.3-5.0) 03/24/18 11:30 POC Chloride 99 mEq/L (97-110) 03/24/18 12:23 Chloride 97 mEq/L (97-110) 03/24/18 11:30 Carbon Dioxide 23 mEq/l (22-31) 03/24/18 11:30 Anion Gap 12 mEq/L (8-16) 03/24/18 11:30 POC BUN 14 mg/dL (7-23) 03/24/18 12:23 BUN 13 mg/dL (7-23) 03/24/18 11:30 Creatinine 0.6 mg/dL (0.7-1.3) L 03/24/18 11:30 POC Creatinine 0.6 mg/dL (0.7-1.3) L 03/24/18 12:23 Estimated GFR > 60 03/24/18 11:30 Glucose 565 mg/dL (70-100) H* 03/24/18 11:30 POC Glucose 378 mg/dL (70-100) H 03/24/18 12:23 Calcium 9.7 mg/dL (8.5-10.4) 03/24/18 11:30 Total Bilirubin 0.3 mg/dL (0.1-1.4) 03/24/18 11:30 Conjugated Bilirubin 0.1 mg/dL (0.0-0.5) 03/24/18 11:30 Unconjugated Bilirubin 0.2 mg/dL (0.0-1.1) 03/24/18 11:30 AST 20 IU/L (17-59) 03/24/18 11:30 ALT 34 IU/L (21-72) 03/24/18 11:30 Alkaline Phosphatase 82 IU/L (38-126) 03/24/18 11:30 Total Protein 6.3 g/dL (6.3-8.2) 03/24/18 11:30 Albumin 3.8 g/dL (3.5-5.0) 03/24/18 11:30 Lipase 308 IU/L (23-300) H 03/24/18 11:30 Assessment & Plan Assessment: #Dehydration #DM-I with Hyperglycemia #Nausea #Gastroparesis with distended abd -CT with possible enteritis. no signs of obstruction Plan: admit observation IVF, will give more now insulin, will give additional now anti emetics Clear liquid diet [facility]
[2018-03-24] MEDS: PANTOPRAZOLE SODIUM 40 MG VIAL IVP SCH (16:41)
[2018-03-24] MEDS: INSULIN LISPRO 100 UNIT/ML SC SCH (17:48)
[2018-03-24] MEDS ORDERED: POTASSIUM CL 10 MEQ TAB PO ONE (19:38)
[2018-03-24] MEDS ORDERED: INSULIN GLARGINE 100 UNITS/ML UNIT SC ONE (21:00)
[2018-03-24] MEDS: NS 1,000 ML IV SCH (21:33)
[2018-03-24] MEDS: ACETAMINOPHEN 325 MG TAB PO PRN (21:33)
[2018-03-24] MEDS: METOCLOPRAMIDE 10 MG/2 ML VIAL IVP SCH (21:33)
[2018-03-24] MEDS: traZODone 100 MG TAB PO SCH (21:33)
[2018-03-24] MEDS: INSULIN GLARGINE 100 UNITS/ML UNIT SC SCH (21:36)
[2018-03-25 05:19] LABS: PLATELET COUNT 280 10^3/uL (150-400)
[2018-03-25] MEDS: METOCLOPRAMIDE 10 MG/2 ML VIAL IVP SCH ×3 (05:29→21:21)
[2018-03-25] MEDS: NS 1,000 ML IV SCH (05:29)
[2018-03-25] MEDS: INSULIN LISPRO 100 UNIT/ML SC SCH ×4 (07:42→17:50)
--- NOTE | 2018-03-25 09:02 | ASMTCMCOM ---
CM Note CM Note Notes: 32yr old male admitted for Constipation, Abdominal distention, Gastro Paresis. He has a Hx of DM, CHI, Sz diso, Anxiety, Drug abuse, Smoker. Patient is from the long term, at [facility] under OBS status. May return to long term? Needs TBD. Date Signed: 03/25/2018 09:02 AM Electronically Signed By:Estefania Velasquez LCSW
[2018-03-25] MEDS: ESCITALOPRAM OXALATE 10 MG TAB PO SCH (09:41)
[2018-03-25] MEDS: PANTOPRAZOLE SODIUM 40 MG VIAL IVP SCH (09:41)
[2018-03-25] MEDS: ACETAMINOPHEN 325 MG TAB PO PRN ×2 (09:41→14:15)
[2018-03-25] MEDS: INSULIN GLARGINE 100 UNITS/ML UNIT SC SCH ×3 (09:41→22:58)
[2018-03-25] MEDS ORDERED: MAGNESIUM SULF 1 GM/DEXTROSE 100 ML IV ONE (12:13)
--- NOTE | 2018-03-25 12:15 | HOSPPROG ---
Hospitalist Progress Note Assessment/Plan: #Dehydration #Brittle DM-I #Nausea #Gastroparesis with distended abd -CT with possible enteritis. no signs of obstruction Plan: his abdomen is still distend, although he has had a BM. Will go back to a clear liquid diet today and hopefully this will help. cont with Reglan which can be changed to PO on discharge. Hydration status is much improved and IVF will be stopped today. Trial off IVF He had one episode of hypoglycemia around midnight. As he was given lots of short acting insulin yesterday and this likely contributed to his one hypoglycemic reading, I will hold off on adjusting his intermediate insulin. Cont as is. Subjective: had one BM. Abd is distended. Objective: Vital Signs Temp Pulse Resp BP Pulse Ox 36.6 C 117 H 16 133/103 H 95 03/25/18 08:00 03/25/18 08:00 03/25/18 08:00 03/25/18 08:00 03/25/18 08:00 Laboratory Results 03/25/18 04:51 03/25/18 04:51 03/24/18 03/25/18 03/26/18 05:59 05:59 05:59 Intake Total 4120 750 Output Total 3675 700 Balance 445 50 - Physical Exam Constitutional: no apparent distress Eyes: PERRL Ears, Nose, Mouth, Throat: moist mucous membranes, hearing normal Cardiovascular: regular rate and rhythym Respiratory: no respiratory distress, no rales or rhonchi Gastrointestinal: normoactive bowel sounds, distension, No tenderness, No guarding Skin: warm Neurologic: AAOx3 Psychiatric: interacting appropriately, not anxious, not encephalopathic ICD10 Worksheet Patient Problems: Problems Problem Status Onset Constipation Acute Distended abdomen Acute Enteritis Acute Gastroparesis Acute
--- NOTE | 2018-03-25 14:14 | PDMN ---
Medical Necessity Medical necessity: Change to inpt as of 03/25/18 @ 12:16. Pt meets inpt criteria per MD order and Gastroenterology GRG. 32 y/o presenting w/abdominal pain and distention admitted w/ gastroparesis, hyperglycemia, dehydration, and nausea. IVF, IV Reglan, IVProtonix, cl liq diet. Hx diabetes, gastroparesis, anxiety, drug abuse, seizures, and TBI. Anticipate>2MN for ongoing med nec monitoring/ treatment.
[2018-03-25] MEDS: traZODone 100 MG TAB PO SCH (21:21)
[2018-03-25] MEDS ORDERED: POTASSIUM CL 10 MEQ TAB PO ONE (22:24)
[2018-03-26] MEDS: METOCLOPRAMIDE 10 MG/2 ML VIAL IVP SCH (05:20)
[2018-03-26] MEDS ORDERED: PNEUMOCOCCAL 0.5ML VACCINE VIAL IM ONE (05:28)
[2018-03-26] MEDS: INSULIN LISPRO 100 UNIT/ML SC SCH ×4 (09:04→18:10)
[2018-03-26] MEDS: ACETAMINOPHEN 325 MG TAB PO PRN ×2 (09:18→18:10)
[2018-03-26] MEDS: PANTOPRAZOLE SODIUM 40 MG VIAL IVP SCH (09:19)
[2018-03-26] MEDS: ESCITALOPRAM OXALATE 10 MG TAB PO SCH (09:19)
[2018-03-26] MEDS: INSULIN GLARGINE 100 UNITS/ML UNIT SC SCH ×2 (09:19→20:11)
--- NOTE | 2018-03-26 11:59 | HOSPPROG ---
Hospitalist Progress Note Assessment/Plan: #Dehydration #Brittle DM-I #Nausea #Gastroparesis with distended abd -CT with possible enteritis. no signs of obstruction Plan: his abdomen is still distend, but non-tender on exam. Will advance to diabetic diet toay. cont with Reglan which I will switch to PO today. Hydration status is much improved and IVF were stopped yesterday. He had one episode of hypoglycemia around midnight. 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 Cont as is. Dispo: Pending clinical course, possible d/c tomorrow Subjective: Patient reports continued abdominal distention Objective: Vital Signs Temp Pulse Resp BP Pulse Ox 37.1 C 117 H 18 147/105 H 95 03/26/18 09:00 03/26/18 09:00 03/26/18 09:00 03/26/18 09:00 03/26/18 09:00 Laboratory Results 03/26/18 04:32 03/25/18 03/26/18 03/27/18 05:59 05:59 05:59 Intake Total 250 Output Total 3300 Balance -3050 - Physical Exam Constitutional: no apparent distress Eyes: PERRL Ears, Nose, Mouth, Throat: moist mucous membranes Cardiovascular: regular rate and rhythym, no murmur, rub, or gallop Respiratory: no respiratory distress Gastrointestinal: soft, non-tender abdomen, distension Genitourinary: no bladder tenderness Skin: warm Musculoskeletal: full muscle strength Neurologic: AAOx3 Psychiatric: interacting appropriately ICD10 Worksheet Patient Problems: Problems Problem Status Onset Constipation Acute Distended abdomen Acute Enteritis Acute Gastroparesis Acute
[2018-03-26] MEDS: METOCLOPRAMIDE 10 MG TAB PO SCH ×3 (12:23→20:06)
[2018-03-26] MEDS: traZODone 100 MG TAB PO SCH (20:06)
[2018-03-27] MEDS: METOCLOPRAMIDE 10 MG TAB PO SCH ×2 (05:34→11:11)
[2018-03-27] MEDS ORDERED: MAGNESIUM SULF 1 GM/DEXTROSE 100 ML IV ONE (07:27)
[2018-03-27 07:38] VITALS: BP 144/90
[2018-03-27] MEDS: ESCITALOPRAM OXALATE 10 MG TAB PO SCH (07:49)
[2018-03-27] MEDS: INSULIN GLARGINE 100 UNITS/ML UNIT SC SCH (07:49)
[2018-03-27] MEDS: PANTOPRAZOLE SODIUM 40 MG VIAL IVP SCH (07:50)
[2018-03-27] MEDS: INSULIN LISPRO 100 UNIT/ML SC SCH (11:10)
--- NOTE | 2018-03-27 11:17 | PDDCSUM ---
Discharge Summary Discharge Summary: Date of Admission: 03/25/2018 Date of Discharge: 03/27/2018 Consults: N/A Followup: With PCP within next 1-2 weeks, consider Gastric Emptying study as OP Procedures: CT Abd/Pelvis w IVC Hospital Course Problem List: #CT with possible mild enteritis/Mild Pancreatitis - CT A/P from admission showed mild haziness around pancreatic head and mild thickening of proximal small bowel loops, no signs of obstruction - Abdomen is still mildly distend, but non-tender on exam. - Advanced to diabetic diet, tolerating well - cont with Reglan which was switched from IV to PO, will likely require formal testing for gastroparesis and decision to continue Reglan buttermaker continuous churn to be made by PCP - continue PPI as OP, may only require trial of 8 weeks, defer to PCP for prison continuation #Dehydration - S/p IVF, d.c on 03/26 - Patient tolerating diet well #Brittle DM-I - He had one episode of hypoglycemia during admission, as given lots of short acting insulin - Continue home Lantus and sliding scale Time Spent on discharge was >35 minutes with >50% of time spent on patient education and counseling
--- NOTE | 2018-03-27 11:32 | PDIAF ---
- Diagnosis Diagnosis: Enteritis Code Status: Full Code - Medication Management Discharge Medications: Medications to Continue on Transfer Insulin Glargine [Lantus 100 UNITS/ML (*)] 28 units SC HS 01/31/18 [Last Taken Unknown] Insulin Lispro [Humalog] 5 - 17 units SQ QIDMEAL 01/31/18 [Last Taken Unknown] Escitalopram Oxalate [Lexapro 10 MG] 10 mg PO DAILY 03/24/18 [Last Taken Unknown ] Insulin Glargine [Lantus 100 UNITS/ML (*)] 25 units SC DAILY 03/24/18 [Last Taken Unknown] traZODone [traZODONE 100MG (*)] 200 mg PO HS 03/24/18 [Last Taken Unknown] Metoclopramide [Reglan 10 mg tab (*)] 10 mg PO QID #0 tab 03/27/18 [Last Taken Unknown] Pantoprazole Sodium [Protonix 40mg (*)] 40 mg PO DAILY tab 03/27/18 [Last Taken Unknown] Discharge Medications: Refer to the Discharge Home Medication list for PRN reason. - Orders Diet Recommendation: ADA 2000 consistent carb Additional Instructions: 1. Take Miralax as directed. 2. Follow-up with your primary doctor within 72 hours. 3. Return to the Emergency Department for fever, chest pain, shortness of breath , increasing pain or other worsening of condition. - Follow Up Care Current Providers and Referrals: Selwyn Garcia [Primary Care Provider] - As per Instructions
--- NOTE | 2018-03-27 12:04 | ASMTDCNOTE ---
Case Management Discharge Discharge Order Complete? Answers: Yes Patient to Obtain Answers: Other Notes: [facility] Medications Transportation Arranged Answers: Other Notes: [facility] [employer]AL[employer] Complete Answers: No Case Management Transport Answers: No Form Complete Faxed Final Orders Answers: Yes Agency/Facility Transfer Answers: Yes Report Printed & Faxed to Receiving Agency Family Notified Answers: No Discharge Comments Notes: CM spoke to Dr. Bermudez and DEBORAH Mckeon regarding d/c POC. Pt is being discharged today back to [facility]. CM spoke to Iveth, a nurse at [facility]. DC orders sent over to them. CM made a referral to [facility]. Pt is currently being supported by Carmina at [facility]. CM available for changes. Plan: [facility] Date Signed: 03/27/2018 12:03 PM Electronically Signed By:LEA Wright
[2018-03-28] MEDS ORDERED: PANTOPRAZOLE SODIUM 40 MG TAB PO SCH (09:00)
== END 2018-03-27 12:30 | DRG 249 ==
LOC: F3E 16:04 → OBSVTOIN 03-25 12:16
PROVIDERS: ADMIT Family Medicine; ATTEND Family Medicine
DX: K52.9 Noninfective gastroenteritis and colitis, unspecified (principal); K85.90 Acute pancreatitis without necrosis or infection, unspecified; E10.649 Type 1 diabetes mellitus with hypoglycemia without coma; E86.0 Dehydration; Z23 Encounter for immunization; Z72.0 Tobacco use; Z79.4 Long term (current) use of insulin
CPT/HCPCS: 82435-PO; 82565-PO; 82947-PO; 84132-PO; 84295-PO; 84520-PO; 85014-PO; 96374; G0008; G0009; G0378; J1170; J1815; J2405; J2765; J3475; Q9967

== ENCOUNTER 2018-03-29 13:14 | Inpatient (IN) | payer MEDICAID, OTHER ==
[2018-03-29] MEDS ORDERED: ONDANSETRON 4 MG/2 ML VIAL IVP ONE (13:30)
[2018-03-29] MEDS ORDERED: NS 1,000 ML IV ONE (13:30)
--- NOTE | 2018-03-29 13:44 | EDPHY ---
H & P Time Seen by Provider: 03/29/18 13:25 HPI/ROS: HPI Bloating, abdominal discomfort. 32-year-old male from the [facility]. This patient was just admitted to our hospital from March 25 through March 27 for gastroparesis. He was discharged on oral Reglan. CT scan of the abdomen and pelvis during this hospital stay showed enteritis, possible mild pancreatitis and moderate constipation. No evidence of obstruction or other surgical etiology. The patient returns stating that he again is feeling distended and bloated in complaining of vague abdominal discomfort. He reports his last bowel movement was just prior to arrival. Denies bloody or melenic stool. States that he had a bowel movement also earlier this morning. His last meal was also about an hour prior to arrival to the emergency department. He reports that he his condition is identical to when he was seen several days ago and admitted. He has had some nausea but has not vomited. He is an insulin-dependent diabetic. ROS: Constitutional: No fever, no chills. No weakness. Eyes: No discharge. No changes in vision. ENT: No sore throat. No nasal congestion or rhinorrhea. Respiratory: No cough. No shortness of breath. Cardiac: No chest pain, no palpitations. Gastrointestinal: As above, no vomiting, no diarrhea. Genitourinary: No hematuria. No dysuria or increased frequency with urination. Musculoskeletal: No back pain. No neck pain. No myalgias or arthralgias. Skin: No rashes. Neurological: No headache. No focal weakness or altered sensation. Past medical history: Gastroparesis, diabetes, TBI, drug abuse, seizures, anxiety. Social history: Nonsmoker. As above. Currently an inmate. Physical Exam: General Appearance: Alert, he does not appear in distress. This patient is responding to questions appropriately and in full sentences. This patient appears well-hydrated and well-nourished. Eyes: Pupils equal and round no pallor or injection. No lid edema, erythema or injection. Respiratory: There are no retractions, lungs are clear to auscultation with good air movement bilaterally. Cardiovascular: Regular rate and rhythm. No murmur. Gastrointestinal: Abdomen is distended and firm with vague tenderness on palpation throughout, no masses, bowel sounds are present. No focal tenderness at McBurney's point. No Lao sign. Neurological: Motor sensory function is grossly intact. Cranial nerves are normal. Gait is normal. Skin: Warm and dry, no rashes. Musculoskeletal: Neck is supple and nontender. Extremities are symmetrical. All joints range without pain or impingement. Psychiatric: No agitation. No depression. Database: EKG: Imaging: Upright abdominal x-ray: Significant for constipation. No free air. No obvious obstructive process. Interpreted by me. Procedures: Emergency department course: Vital signs reviewed. He is moderately hypertensive. Vital signs are otherwise normal. He is afebrile. IV was placed. He was started on IV normal saline with 1-2 L to be given over the next 1-2 hours. He was given 4 mg of IV Zofran. His medical records from his previous visit were reviewed. 2:40 p.m., patient re-evaluated. He is resting comfortably at this time. He was 10 mg of IV Reglan. Results of blood work and x-ray reviewed. No evidence of obstruction. No evidence of DKA. However, given the patient's condition I do not feel he will be accepted back to residential. Hospitalist paged. 2:55 p.m., I spoke with Dr. Niru Madrid of the hospitalist service. Case discussed in detail with her. She accepts this [facility]. The patient's remaining emergency department course under my care has been uneventful. The patient was admitted in stable condition. Differential Diagnosis: The differential diagnosis on this patient includes but is not limited to gastroparesis, constipation. Bowel obstruction, appendicitis, cholecystitis, pancreatitis unlikely. This represents a partial list of diagnoses considered. These considerations are based on history, physical exam, past history, reassessment and diagnostic testing. Smoking Status: Current some day smoker Constitutional: Initial Vital Signs Temperature (C) 36.7 C 03/29/18 13:22 Heart Rate 125 H 03/29/18 13:22 Respiratory Rate 18 03/29/18 13:22 Blood Pressure 157/109 H 03/29/18 13:22 O2 Sat (%) 95 03/29/18 13:22 O2 Delivery Mode Room Air Allergies/Adverse Reactions: naproxen Allergy (Unknown, Verified 03/24/18 14:17) Hives Home Medications: Medication Instructions Recorded Insulin Glargine [Lantus 100 28 units SC HS 01/31/18 UNITS/ML (*)] Insulin Lispro [Humalog] 5 - 17 units SQ QIDMEAL 01/31/18 Escitalopram Oxalate [Lexapro 10 10 mg PO DAILY 03/24/18 MG] Insulin Glargine [Lantus 100 25 units SC DAILY 03/24/18 UNITS/ML (*)] traZODone [traZODONE 100MG (*)] 200 mg PO HS 03/24/18 Metoclopramide [Reglan 10 mg tab 10 mg PO QID #0 tab 03/27/18 (*)] Pantoprazole Sodium [Protonix 40mg 40 mg PO DAILY tab 03/27/18 (*)] Medical Decision Making - Data Points Laboratory Results: Laboratory Results 03/29/18 13:50 03/29/18 13:50 03/29/18 03/29/18 13:50 13:50 WBC 13.07 10^3/uL H 10^3/uL (3.80-9.50) RBC 4.56 10^6/uL 10^6/uL (4.40-6.38) Hgb 13.9 g/dL g/dL (13.7-17.5) Hct 40.2 % % (40.0-51.0) MCV 88.2 fL fL (81.5-99.8) MCH 30.5 pg pg (27.9-34.1) MCHC 34.6 g/dL g/dL (32.4-36.7) RDW 12.8 % % (11.5-15.2) Plt Count 349 10^3/uL 10^3/uL (150-400) MPV 9.6 fL fL (8.7-11.7) Neut % (Auto) 73.4 % % (39.3-74.2) Lymph % (Auto) 17.1 % % (15.0-45.0) Stanton % (Auto) 8.1 % % (4.5-13.0) Eos % (Auto) 0.6 % % (0.6-7.6) Baso % (Auto) 0.5 % % (0.3-1.7) Nucleat RBC Rel Count 0.0 % % (0.0-0.2) Absolute Neuts (auto) 9.59 10^3/uL H 10^3/uL (1.70-6.50) Absolute Lymphs (auto) 2.23 10^3/uL 10^3/uL (1.00-3.00) Absolute Monos (auto) 1.06 10^3/uL H 10^3/uL (0.30-0.80) Absolute Eos (auto) 0.08 10^3/uL 10^3/uL (0.03-0.40) Absolute Basos (auto) 0.07 10^3/uL 10^3/uL (0.02-0.10) Absolute Nucleated RBC 0.00 10^3/uL 10^3/uL (0-0.01) Immature Gran % 0.3 % % (0.0-1.1) Immature Gran # 0.04 10^3/uL 10^3/uL (0.00-0.10) Sodium 137 mEq/L mEq/L (135-145) Potassium 4.6 mEq/L mEq/L (3.3-5.0) Chloride 104 mEq/L mEq/L (97-110) Carbon Dioxide 24 mEq/l mEq/l (22-31) Anion Gap 9 mEq/L mEq/L (8-16) BUN 10 mg/dL mg/dL (7-23) Creatinine 0.7 mg/dL mg/dL (0.7-1.3) Estimated GFR > 60 Glucose 126 mg/dL H mg/dL (70-100) Calcium 9.7 mg/dL mg/dL (8.5-10.4) Total Bilirubin 0.3 mg/dL mg/dL (0.1-1.4) Conjugated Bilirubin 0.2 mg/dL mg/dL (0.0-0.5) Unconjugated Bilirubin 0.1 mg/dL mg/dL (0.0-1.1) AST 22 IU/L IU/L (17-59) ALT 34 IU/L IU/L (21-72) Alkaline Phosphatase 61 IU/L IU/L (38-126) Total Protein 6.6 g/dL g/dL (6.3-8.2) Albumin 3.9 g/dL g/dL (3.5-5.0) Lipase 126 IU/L IU/L (23-300) Medications Given: Discontinued Medications Sodium Chloride (Ns) 1,000 mls @ 0 mls/hr IV EDNOW ONE; Wide Open PRN Reason: Protocol Stop: 03/29/18 13:31 Last Admin: 03/29/18 14:03 Dose: 1,000 mls Departure - Departure Disposition: [facility] Inpatient Acute Clinical Impression: Gastroparesis, Constipation, Vomiting Referrals: NONE *PRIMARY CARE P,. [Primary Care Provider] - As per Instructions
[2018-03-29 14:29] LABS: PLATELET COUNT 349 10^3/uL (150-400)
[2018-03-29] MEDS ORDERED: METOCLOPRAMIDE 10 MG/2 ML VIAL IVP ONE (14:36)
[2018-03-29] MEDS ORDERED: ACETAMINOPHEN 325 MG TAB PO PRN (14:55)
[2018-03-29] MEDS ORDERED: ONDANSETRON 4 MG/2 ML VIAL IVP PRN (14:55)
[2018-03-29] MEDS ORDERED: PROMETHAZINE HCL 25 MG/ML INJ IVP PRN (14:55)
[2018-03-29] MEDS ORDERED: MAGNESIUM HYDROXIDE 30 ML UDCUP PO PRN (14:59)
[2018-03-29] MEDS ORDERED: POLYETHYLENE GLYCOL 3350 17 GM PKT PO PRN (14:59)
[2018-03-29] MEDS ORDERED: LACTULOSE 20 GM/30 ML UDCUP PO PRN (14:59)
[2018-03-29] MEDS ORDERED: BISACODYL 10 MG SUPP PR PRN (14:59)
[2018-03-29] MEDS ORDERED: D50W 25 GM/50 ML SYR IVP PRN (14:59)
[2018-03-29] MEDS ORDERED: PANTOPRAZOLE SODIUM 40 MG VIAL IVP SCH (15:00)
--- NOTE | 2018-03-29 15:10 | PDGENHP ---
History and Physical - Chief Complaint abdominal pain, vomiting - History of Present Illness 32 yo male with h/o type 1 diabetes and recent hospitalization returns 2 days after discharge with increased abdominal pain with bloating, distention and vomiting. He denies fevers or chills. He reports since discharge he has been tolerating a diet and actually feels better after eating. He notes vomiting a couple of occasions, but that was not related to eating and he thinks it may have been related to high blood sugars. He has been taking reglan with some relief, but today had increased distention and pain. He reports normal bowel movements, last BM was this am and he says it was soft and normal. He does not believe he is constipated. No urinary symptoms. He is unsure if he has had a gastric emptying study in the past. He was recently referred to an masonry instructor, but has not followed up yet. He is incarcerated related to prior drug charges, but denies recent drug use and states he has been completely clean and sober for >3 months. In the ED, an abdominal xray showed constipation pattern. He is admitted to the hospital for further management. History Information - Allergies/Home Medication List Allergies/Adverse Reactions: naproxen Allergy (Unknown, Verified 03/29/18 15:20) Hives Home Medications: Insulin Glargine [Lantus 100 UNITS/ML (*)] 28 units SC HS 01/31/18 [Last Taken 03/28/18] Insulin Lispro [Humalog] 5 - 17 units SQ QIDMEAL 01/31/18 [Last Taken 03/29/18] Escitalopram Oxalate [Lexapro 10 MG] 10 mg PO DAILY 03/24/18 [Last Taken ] Insulin Glargine [Lantus 100 UNITS/ML (*)] 25 units SC DAILY 03/24/18 [Last Taken 03/29/18] traZODone [traZODONE 100MG (*)] 200 mg PO HS 03/24/18 [Last Taken 03/28/18] Metoclopramide [Reglan 10 mg tab (*)] 10 mg PO BID 03/29/18 [Last Taken 03/29/18 ] I have personally reviewed and updated: family history, medical history, social history, surgical history - Past Medical History diabetes type 1 Additional medical history: H/O gastroparesis. H/O TBI - Surgical History Reports: no pertinent surgical hx - Family History Positive for: non-pertinent - Social History Smoking Status: Current some day smoker Alcohol Use: None Drug Use: None Additional social history: Currently an inmate at [facility] Review of Systems Review of Systems: ROS: 10pt was reviewed & negative except for what was stated in HPI & below Physical Exam Physical Exam: Temp Pulse Resp BP Pulse Ox 36.7 C 125 H 18 157/109 H 95 03/29/18 13:22 03/29/18 13:22 03/29/18 13:22 03/29/18 13:22 03/29/18 13:22 Constitutional: no apparent distress Eyes: PERRL Ears, Nose, Mouth, Throat: moist mucous membranes Cardiovascular: tachycardia Respiratory: no respiratory distress, clear to auscultation Gastrointestinal: other (soft, moderate distention, mild diffuse TTP, no r/r/g, +BS) Skin: warm Musculoskeletal: full muscle strength Neurologic: AAOx3 Psychiatric: interacting appropriately Lab Data & Imaging Review 03/29/18 13:50 03/29/18 13:50 WBC 13.07 10^3/uL (3.80-9.50) H 03/29/18 13:50 RBC 4.56 10^6/uL (4.40-6.38) 03/29/18 13:50 Hgb 13.9 g/dL (13.7-17.5) 03/29/18 13:50 Hct 40.2 % (40.0-51.0) 03/29/18 13:50 MCV 88.2 fL (81.5-99.8) 03/29/18 13:50 MCH 30.5 pg (27.9-34.1) 03/29/18 13:50 MCHC 34.6 g/dL (32.4-36.7) 03/29/18 13:50 RDW 12.8 % (11.5-15.2) 03/29/18 13:50 Plt Count 349 10^3/uL (150-400) 03/29/18 13:50 MPV 9.6 fL (8.7-11.7) 03/29/18 13:50 Neut % (Auto) 73.4 % (39.3-74.2) 03/29/18 13:50 Lymph % (Auto) 17.1 % (15.0-45.0) 03/29/18 13:50 Archer % (Auto) 8.1 % (4.5-13.0) 03/29/18 13:50 Eos % (Auto) 0.6 % (0.6-7.6) 03/29/18 13:50 Baso % (Auto) 0.5 % (0.3-1.7) 03/29/18 13:50 Nucleat RBC Rel Count 0.0 % (0.0-0.2) 03/29/18 13:50 Absolute Neuts (auto) 9.59 10^3/uL (1.70-6.50) H 03/29/18 13:50 Absolute Lymphs (auto) 2.23 10^3/uL (1.00-3.00) 03/29/18 13:50 Absolute Monos (auto) 1.06 10^3/uL (0.30-0.80) H 03/29/18 13:50 Absolute Eos (auto) 0.08 10^3/uL (0.03-0.40) 03/29/18 13:50 Absolute Basos (auto) 0.07 10^3/uL (0.02-0.10) 03/29/18 13:50 Absolute Nucleated RBC 0.00 10^3/uL (0-0.01) 03/29/18 13:50 Immature Gran % 0.3 % (0.0-1.1) 03/29/18 13:50 Immature Gran # 0.04 10^3/uL (0.00-0.10) 03/29/18 13:50 Sodium 137 mEq/L (135-145) 03/29/18 13:50 Potassium 4.6 mEq/L (3.3-5.0) 03/29/18 13:50 Chloride 104 mEq/L (97-110) 03/29/18 13:50 Carbon Dioxide 24 mEq/l (22-31) 03/29/18 13:50 Anion Gap 9 mEq/L (8-16) 03/29/18 13:50 BUN 10 mg/dL (7-23) 03/29/18 13:50 Creatinine 0.7 mg/dL (0.7-1.3) 03/29/18 13:50 Estimated GFR > 60 03/29/18 13:50 Glucose 126 mg/dL (70-100) H 03/29/18 13:50 Calcium 9.7 mg/dL (8.5-10.4) 03/29/18 13:50 Total Bilirubin 0.3 mg/dL (0.1-1.4) 03/29/18 13:50 Conjugated Bilirubin 0.2 mg/dL (0.0-0.5) 03/29/18 13:50 Unconjugated Bilirubin 0.1 mg/dL (0.0-1.1) 03/29/18 13:50 AST 22 IU/L (17-59) 03/29/18 13:50 ALT 34 IU/L (21-72) 03/29/18 13:50 Alkaline Phosphatase 61 IU/L (38-126) 03/29/18 13:50 Total Protein 6.6 g/dL (6.3-8.2) 03/29/18 13:50 Albumin 3.9 g/dL (3.5-5.0) 03/29/18 13:50 Lipase 126 IU/L (23-300) 03/29/18 13:50 Assessment & Plan Assessment: Abdominal pain with N/V - pt reportedly has h/o gastroparesis, just discharged 2 days ago on oral reglan, symptoms worse. Abdl xray personally reviewed and interpreted: constipation pattern. -admit for supportive care -IV reglan, anti-emetics, IVF's -gastric emptying study ordered for am, avoid opiates prior to study and also no PPI per rads, NPO after midnight Type 1 DM - bg normal on arrival, no DKA -cont basal / bolus insulin Leukocytosis - suspect stress response in setting of N/V -hydrate and follow Tachycardia - suspect 2/2 pain and volume depletion -IVF's, check EKG (note multiple QT prolonging agents) Full code DVT PPLX - low risk, SCD's Dispo - obs
[2018-03-29] MEDS: NS 1,000 ML IV SCH (16:57)
[2018-03-29] MEDS: INSULIN LISPRO 100 UNIT/ML SC SCH ×2 (18:06→21:46)
[2018-03-29] MEDS: traZODone 100 MG TAB PO SCH (20:16)
[2018-03-29] MEDS: SENNOSIDES/DOCUSATE SODIUM TAB PO SCH (20:16)
[2018-03-29] MEDS ORDERED: METOCLOPRAMIDE 10 MG/2 ML VIAL IVP PRN (21:00)
[2018-03-29] MEDS: INSULIN GLARGINE 100 UNITS/ML UNIT SC SCH (23:30)
[2018-03-30] MEDS: NS 1,000 ML IV SCH ×2 (03:15→12:21)
[2018-03-30 05:30] LABS: PLATELET COUNT 291 10^3/uL (150-400)
--- NOTE | 2018-03-30 08:55 | CPEKG ---
Test Reason : OPEN Blood Pressure : / mmHG Vent. Rate : 091 BPM Atrial Rate : 091 BPM P-R Int : 145 ms QRS Dur : 097 ms QT Int : 357 ms P-R-T Axes : 061 097 029 degrees QTc Int : 440 ms Sinus rhythm Probable left atrial enlargement Borderline right axis deviation ST elev, probable normal early repol pattern Confirmed by Honorio Otoole ([id number]) on 03/30/2018 8:55:17 AM Referred By: Confirmed By:Honorio Otoole
[2018-03-30] MEDS ORDERED: INSULIN GLARGINE 100 UNITS/ML UNIT SC SCH ×3 (09:00→10:40)
[2018-03-30] MEDS: INSULIN LISPRO 100 UNIT/ML SC SCH ×4 (09:35→21:46)
[2018-03-30] MEDS: ESCITALOPRAM OXALATE 10 MG TAB PO SCH (11:15)
[2018-03-30] MEDS: SENNOSIDES/DOCUSATE SODIUM TAB PO SCH ×2 (11:15→20:15)
--- NOTE | 2018-03-30 13:49 | HOSPPROG ---
Hospitalist Progress Note Assessment/Plan: 32y M with poorly controlled type 1 diabetes presents with abdominal pain and intractable nausea/vomiting. N/V have resolved, still having pain. Of note, this is second admission in last week for same sxs. #Abdominal pain: Persistent but non-peritoneal. Mostly right sided. LFTs/lipase , UA normal. AXR with constipation. Recent CT with possible pancreatitis ( although lipase nl) and enteritis. - Gastric emptying study pending - Supportive care with pain control, IV anti-emetics, IVF - Bowel regimen - Do not feel that advanced imaging is necessary at this time #T1DM: Recent A1c 10%. Not in DKA. - Continue basal/bolus insulin #Leukocytosis: Resolved. Diet: carb controlled after emptying study VTE ppx: SCDs Code: full Dispo: change to inpatient for management of above symptoms with IV pain meds and anti-emetics Subjective: Still having sharp right sided abdominal pain. Mostly RLQ. Denies nausea, vomiting, diarrhea. Last BM yesterday. No fevers. Objective: Vital Signs Temp Pulse Resp BP Pulse Ox 36.9 C 91 16 142/87 H 94 03/30/18 12:00 03/30/18 12:00 03/30/18 12:00 03/30/18 12:00 03/30/18 12:00 Laboratory Results 03/30/18 04:27 03/30/18 04:27 03/29/18 03/30/18 03/31/18 05:59 05:59 05:59 Intake Total 1100 Output Total 1500 2300 Balance -400 -2300 - Physical Exam Constitutional: no apparent distress, appears nourished, not in pain Eyes: PERRL, anicteric sclera, EOMI Ears, Nose, Mouth, Throat: moist mucous membranes, hearing normal, ears appear normal, no oral mucosal ulcers Cardiovascular: regular rate and rhythym, no murmur, rub, or gallop Respiratory: no respiratory distress, no rales or rhonchi, clear to auscultation Gastrointestinal: tenderness (mostly right sided, non-peritoneal), distension ( rather tense abdomen), other (diminished bowel sounds), No guarding, No rebound Skin: no rashes or abrasions, no fluctuance, no induration Neurologic: AAOx3, sensation intact bilaterally Psychiatric: interacting appropriately, not anxious, not encephalopathic, thought process linear ICD10 Worksheet Patient Problems: Problems Problem Status Onset Constipation Acute Gastroparesis Acute Vomiting Acute Distended abdomen Acute Enteritis Acute
--- NOTE | 2018-03-30 15:35 | PDMN ---
Medical Necessity Medical necessity: Pt meets INPT criteria per MD as of 03/30/18 and [facility] -05 Abd Pain (est. LOS >2 MN for ongoing eval/mgmt of abd pain, type 1 DM; requiring IV pain meds and anti-emetics).
--- NOTE | 2018-03-30 15:38 | PDMN ---
Medical Necessity Medical necessity: Change to inpt as of 03/30/18 @ 1521. Pt meets inpt criteria per MD order and [facility]. 32 y/o w/persistent abdominal pain w/ distention and vomiting, recent hospital admission for same symptoms. Hx of gastroparesis, poorly controlled type 1 diabetes. IV Reglan, IVF, IV antiemetics , IV pain meds, gastric emptying study pending. Anticipate >2MN for med nec management of ongoing abdominal pain.
[2018-03-30] MEDS: HYDROmorphONE/DILAUDID 1 MG/ML INJ IVP PRN ×2 (16:03→23:36)
[2018-03-30] MEDS: oxyCODONE IR 5 MG TAB PO PRN (20:14)
[2018-03-30] MEDS: traZODone 100 MG TAB PO SCH (20:14)
[2018-03-30] MEDS: INSULIN GLARGINE 100 UNITS/ML UNIT SC SCH (21:47)
[2018-03-31] MEDS: NS 1,000 ML IV SCH (01:14)
[2018-03-31] MEDS: HYDROmorphONE/DILAUDID 1 MG/ML INJ IVP PRN (05:55)
--- NOTE | 2018-03-31 08:02 | ASMTCMCOM ---
CM Note CM Note Notes: Patient admitted for abdominal pain, recently discharged on 03/27 back to the [facility]. Anticipate patient will d/c back to same, but will continue to follow for d/c needs. LVM for FC to confirm patient's Medicaid as typically patient's are admitted under the [facility]. Will likely need to touch base with [place]'s RN upon discharge. CM will continue to follow. Date Signed: 03/31/2018 08:01 AM Electronically Signed By:Adrienne Borrego RN
[2018-03-31] MEDS: INSULIN LISPRO 100 UNIT/ML SC SCH ×2 (08:20→12:14)
[2018-03-31] MEDS: SENNOSIDES/DOCUSATE SODIUM TAB PO SCH (08:21)
[2018-03-31] MEDS: ESCITALOPRAM OXALATE 10 MG TAB PO SCH (08:21)
[2018-03-31] MEDS ORDERED: INSULIN GLARGINE 100 UNITS/ML UNIT SC SCH (09:00)
[2018-03-31] MEDS: oxyCODONE IR 5 MG TAB PO PRN (10:44)
[2018-03-31 11:49] VITALS: BP 145/87
--- NOTE | 2018-03-31 13:25 | ASMTLACE ---
LO Length of stay for Answers: 1 day current admission Acuity / Level of Answers: Yes Care: Did the patient have an inpatient admission? Comorbidities - select Answers: Diabetes (uncontrolled or all that apply controlled) Opioid dependence / Chronic pain Other Notes: TBI; Seizures # of Emergency department Answers: 3-4 visits in the last 6 months Social determinants Answers: History of substance abuse (ETOH, street drugs, prescription drugs, etc.) Mental health diagnosis (anxiety, depression, pers onality disorders, etc.) Score: 19 Date Signed: 03/31/2018 01:24 PM Electronically Signed By:Angelica Brennan RN
--- NOTE | 2018-03-31 13:27 | ASMTDCNOTE ---
Case Management Discharge Discharge Order Complete? Answers: Yes Patient to Obtain Answers: Other Notes: [facility] Medications Transportation Arranged Answers: Other Notes: [facility] Discharge Comments Notes: D/w RN, pt returning to [facility] with officer present. RN called report, no other needs identified. Date Signed: 03/31/2018 01:27 PM Electronically Signed By:Angelica Brennan RN
--- NOTE | 2018-03-31 13:28 | ASDISCHSUM ---
Discharge Information Plan Status:Home with No Needs Medically Cleared to Leave: Discharge Date: CM D/C Disposition:Law Enforcement/Court/Assisted ADT D/C Disposition:Home, Routine, Self-Care Projected Discharge Date: Transportation at D/C:Law Enforcement/Police Discharge Delay Reason: Follow-Up Date: Discharge Slot: Final Diagnosis: Placement Information Patient Contact Information Contact Name:MATTHEW Relationship:Mother Address:[address] [place] [address] Work Phone: City:[place] Alternate Phone: State/Zip Code:[place] [address] Email: Financial Information Financial Class:Medicaid Primary Plan Desc:[employer] Primary Plan Number:[id number] Secondary Plan Desc: Secondary Plan Number: Assessment Information LACE LACE Length of stay for Answers: 1 day current admission Acuity / Level of Answers: Yes Care: Did the patient have an inpatient admission? Comorbidities - select Answers: Diabetes (uncontrolled or all that apply controlled) Opioid dependence / Chronic pain Other Notes: TBI; Seizures # of Emergency department Answers: 3-4 visits in the last 6 months Social determinants Answers: History of substance abuse (ETOH, street drugs, prescription drugs, etc.) Mental health diagnosis (anxiety, depression, pers onality disorders, etc.) Score: 19 Date Signed: 03/31/2018 01:24 PM Electronically Signed By:Angelica Brennan RN [facility] CM Progress Note CM Note CM Note Notes: Patient admitted for abdominal pain, recently discharged on 03/27 back to the [facility]. Anticipate patient will d/c back to same, but will continue to follow for d/c needs. [facility] for to confirm patient's Medicaid as typically patient's are admitted under the [facility]. Will likely need to touch base with [employer] [place] [facility] RN upon discharge. CM will continue to follow. Date Signed: 03/31/2018 08:01 AM Electronically Signed By:Adrienne Borrego RN Case Management Discharge Plan Note Case Management Discharge Discharge Order Complete? Answers: Yes Patient to Obtain Answers: Other Notes: [facility] Medications Transportation Arranged Answers: Other Notes: [facility] Discharge Comments Notes: D/w RN, pt returning to [facility] with officer present. RN called report, no other needs identified. Date Signed: 03/31/2018 01:27 PM Electronically Signed By:Angelica Brennan RN Intervention Information
--- NOTE | 2018-04-01 08:16 | PDDCSUM ---
Discharge Summary Discharge Summary: Date of Admission: 03/29/2018 Date of Discharge: 03/31/2018 Procedures/Studies: gastric emptying study Discharge Diagnoses: 1. Abdominal pain/distention 2. Type 1 diabetes 3. Leukocytosis Brief Hospital Course: 32y M with poorly controlled type 1 diabetes presented with abdominal pain and intractable nausea/vomiting. He was just recently admitted for the same at which time labs and CT of his abdomen did not reveal an etiology and he was started on reglan for possible gastroparesis. We obtained a gastric emptying study this admission which was normal so his reglan was stopped. His pain improved with nausea medications and stool softener; he was tolerating PO and having regular BMs at time of discharge. Started amitriptyline for neuropathic pain. We did not change his insulin regimen. Medications: Please refer to EMR for complete list. Changes this admission include discontinuing escitalopram and metoclopramide and starting amitriptyline , simethicone, phenergan. Follow Up Plan: 1. Establish with PCP for management of diabetes and pain 2. Consider checking celiac panel 3. Uptitrate amitriptyline as able Physical Exam: Vitals reviewed and stable. Alert and oriented. RRR, no m/r/g. Lungs clear. Abdomen mildly distended but improved, soft, nontender, normoactive bowel sounds. No rashes. No edema.
== END 2018-03-31 14:46 | DRG 254 ==
LOC: EEVIPCON 14:56 → F3E 16:19 → OBSVTOIN 03-30 15:21
PROVIDERS: ADMIT Hospitalist; ATTEND Hospitalist
DX: R14.0 Abdominal distension (gaseous) (principal); E10.9 Type 1 diabetes mellitus without complications; R10.9 Unspecified abdominal pain; R11.2 Nausea with vomiting, unspecified; E86.9 Volume depletion, unspecified; Z72.0 Tobacco use; Z79.4 Long term (current) use of insulin
CPT/HCPCS: 96374; A9541; G0378; J1170; J1815; J2765

== ENCOUNTER 2018-04-15 12:12 | Emergency (ER) | payer MEDICAID ==
--- NOTE | 2018-04-15 13:02 | EDPHY ---
H & P Stated Complaint: ABD Pain, Bright Red Blood in stool Time Seen by Provider: 04/15/18 12:53 HPI/ROS: CHIEF COMPLAINT: Abdominal pain and distension, blood in stool HISTORY OF PRESENT ILLNESS: The patient is a 33 y/o male with a history of type I diabetes arriving in [facility] custody complaining of abdominal "pressure and swelling" and pain onset 3-4 days ago. He's been seen here several times in the last few weeks with the same complaint. He was admitted 03/29/18 for this and had a normal gastric emptying study at that time. His symptoms improved with nausea medications and stool softeners and he was discharged on amitriptyline for neuropathic pain with referral to GI. He has been unable to see GI yet. He describes 2-3 formed bowel movements per day on average regardless of symptom presence. His symptoms are intermittent and this most recent episode started 3- 4 days ago. His pain is worse on the right side. He denies recent diarrhea or vomiting. He noticed darker blood in his stool yesterday and brighter red blood in his stool today, prompting transport here. He reports his sugars "bounce around quite a bit" when symptomatic and today have been between 220-550. He checks his BGL 4-5 times per day and his last insulin dose was at 10:15 this morning. No history of abdominal surgeries. REVIEW OF SYSTEMS: A ten system review of systems was performed and is negative with the exception of the items mentioned in the HPI. Past medical history: Type I diabetes - Sliding scale Humalog and Lantus BID. Past surgical history: No abdominal surgeries Family history: Noncontributory Social history: [facility] officer at bedside. Smoker, not for several months. No history of IV drug use. General Appearance: Alert. Vital signs reviewed. Heart rate 134 at triage. Blood pressure 162/112 in triage. Eyes: Pupils equal and round, no conjunctival injection, no discharge. Anicteric. ENT, Mouth: Mucous membranes are moist, no oropharyngeal erythema or edema. Neck: No lymphadenopathy, supple. Respiratory: Lungs are clear to auscultation; no wheezes, rales, or rhonchi. Cardiovascular: Regular rate and rhythm; no murmur, rub, or gallop. Gastrointestinal: Abdomen is mild distended, mild diffuse tenderness worse on right side, no guarding, no masses or organomegaly. Skin: Warm and dry, no rashes on exposed skin, normal color. Back: Nontender to palpation over the thoracolumbar spine. No CVAT. Extremities: No lower extremity edema, no calf tenderness or swelling. Neurological: Alert and oriented. Moving all four extremities easily and equally. Psychiatric: Normal affect. - Personal History Current Tetanus Diphtheria and Acellular Pertussis (TDAP): Yes - Medical/Surgical History Hx Asthma: Yes Hx Chronic Respiratory Disease: No Hx Diabetes: Yes Hx Cardiac Disease: No Hx Renal Disease: No Hx Cirrhosis: No Hx Alcoholism: Yes Hx HIV/AIDS: No Hx Splenectomy or Spleen Trauma: No Other PMH: diabetes, TBI, anxiety, drug abuse and seizures ( takes CBD oil for same) - Social History Smoking Status: Former smoker Constitutional: Initial Vital Signs Temperature (C) 36.8 C 04/15/18 12:18 Heart Rate 134 H 04/15/18 12:18 Respiratory Rate 18 04/15/18 12:18 Blood Pressure 162/112 H 04/15/18 12:18 O2 Sat (%) 95 04/15/18 12:18 O2 Delivery Mode Room Air Allergies/Adverse Reactions: naproxen Allergy (Unknown, Verified 04/15/18 12:29) Hives Home Medications: Medication Instructions Recorded Insulin Glargine [Lantus 100 28 units SC HS 01/31/18 UNITS/ML (*)] Insulin Lispro [Humalog] 5 - 17 units SQ QIDMEAL 01/31/18 Insulin Glargine [Lantus 100 25 units SC DAILY 03/24/18 UNITS/ML (*)] traZODone [traZODONE 100MG (*)] 200 mg PO HS 03/24/18 Pantoprazole Sodium [Protonix 40mg 40 mg PO DAILY tab 03/27/18 (*)] Amitriptyline HCl 25 mg PO HS #30 tablet 03/31/18 Promethazine HCl [Phenergan 12.5mg 12.5 mg PO BID PRN #60 tablet 03/31/18 tab] Sennosides/Docusate Sodium 1 - 2 tab PO BID tab 03/31/18 [Senokot-S] Simethicone 125 mg PO BID PRN #60 capsule 03/31/18 Medical Decision Making - Diagnostics Imaging: Discussed imaging studies w/ hydroelectric plant operator Radiologist, I viewed and interpreted images myself ED Course/Re-evaluation: This is a 33 y/o male with diabetes type I who presents with a 3-4 day history of progressive abdominal distension and pain associated with reported blood in his bowel movements yesterday and today. This has been an ongoing problem for him. He has abdominal mild distension and mild diffuse tenderness on exam. Plan for IV, labs, and abdominal CT. BGL 192. Hemoglobin and hematocrit 14 and 40. I do not suspect significant blood loss. Abdominal CT: constipation, no other abnormal findings. I reviewed these findings with him. He continues to state that he has 2-3 bowel movements daily on a regular basis. He has asked for narcotics twice for pain control. He will not be given narcotics and they will certainly not be helpful in the setting of chronic constipation. He has been taking Senokot. He does not have a surgical abdomen on exam. He is noted to be hypertensive and slightly tachycardic in the emergency department. His blood pressure and heart rate improved but continued to be out of the range of normal. I do not doubt that he is uncomfortable and suspect that both his blood pressure readings and his mild tachycardia are related to discomfort. He is aware of the high blood pressure readings and this will be checked by either a primary care physician or a medical provider at the half-way. He very much wants to see a pack train driver and is in the process of trying to arrange this while incarcerated. Reassessed patient and discussed findings. Recommended treatment with magnesium citrate. Differential Diagnosis: I considered a differential diagnosis that includes but is not limited to delayed gastric emptying, constipation, obstipation, bowel obstruction, malingering, drug-seeking behavior. - Data Points Laboratory Results: Laboratory Results 04/15/18 13:30 04/15/18 13:30 Medications Given: Discontinued Medications Magnesium Citrate (Magnesium Citrate) 300 ml PO ONCE ONE Stop: 04/15/18 15:10 Last Admin: 04/15/18 15:16 Dose: Not Given Departure - Departure Disposition: Home, Routine, Self-Care Clinical Impression: Constipation Qualifiers: Constipation type: other constipation type Qualified Code(s): K59.09 - Other constipation Condition: Good Instructions: Magnesium Citrate (By mouth), Constipation (ED) Additional Instructions: Use magnesium citrate as directed for constipation. Slowly drinks a bottle of magnesium citrate tonight. You would be best for you to be housed by herself tonight with access to a toilet. The magnesium citrate will likely make you stool frequently. You're pain will likely continue until your bowels are cleared out. Continue checking your blood sugars at least 4 times daily as you have been. Try to eat regularly as you have been. Follow up with GI doctor -- it is imperative that you are seen by a pack train driver, sooner rather than later. Return to the ED for worsening of condition. Referrals: Jose Ramon Levine MD [Medical Doctor] - As per Instructions Report Scribed for: Loan Green Report Scribed by: Anna Malin Date of Report: 04/15/18 Time of Report: 13:27 Physician Review and Approval Statement: 04/15/18 13:00 Portions of this note were transcribed by the chief medical physicist. I, Dr. Loan Green, personally performed the history, physical exam, and medical decision- making; and confirmed the accuracy of the information in the transcribed note.
[2018-04-15 13:39] LABS: PLATELET COUNT 360 10^3/uL (150-400)
[2018-04-15] MEDS ORDERED: IOPAMIDOL (ISOVUE-300) 100 ML BTL ONE (13:53)
[2018-04-15] MEDS ORDERED: MAGNESIUM CITRATE 300 ML BOTTLE ONE (15:05)
[2018-04-15] MEDS ORDERED: MAGNESIUM CITRATE 300 ML BOTTLE PO ONE (15:09)
[2018-04-15 15:18] VITALS: BP 157/104
== END 2018-04-15 15:20 | disposition home or self-care (01) ==
DX: K59.09 Other constipation (principal); E10.9 Type 1 diabetes mellitus without complications; Z87.891 Personal history of nicotine dependence
CPT/HCPCS: Q9967

== ENCOUNTER 2018-09-09 16:00 | Emergency (ER) | payer MEDICAID | END 2018-09-09 19:45 | disposition home or self-care (01) ==